=== PATIENT | female | born 1980 | race Caucasian/White ===

== ENCOUNTER 2017-02-25 15:16 | Observation (INO) ==
[2017-02-25] MEDS ORDERED: 0.9 % SODIUM CHLORIDE 1,000 ML IV ONE (15:31)
[2017-02-25] MEDS ORDERED: KETOROLAC 30 MG/ML VIAL IV ONE (15:31)
[2017-02-25] MEDS ORDERED: ONDANSETRON 4 MG/2 ML VIAL IV ONE ×2 (15:31→17:54)
--- NOTE | 2017-02-25 15:33 | Emergency Department Note ---
Female Urogenital HPI - General Chief complaint: Flank Pain Stated complaint: L flank pain Time Seen by Provider: 02/25/17 15:29 Source: patient Mode of arrival: ambulatory - History of Present Illness HPI Narrative: [facility] developing left flank pain last night associated with nausea and vomiting. She has a history of kidney stones. As this feels identical to previous stones. - Related Data Home Medications Medication Instructions Recorded Confirmed No Known Home Meds [No Known Home 02/26/17 02/26/17 Meds] Allergies Allergy/AdvReac Type Severity Reaction Status Date / Time codeine AdvReac Mild Itching Verified 02/25/17 15:19 Review of Systems All systems ED: reviewed and negative except as stated. Past Medical History - Past Medical History [facility] Narrative: Medical History (Last Updated 01/09/17 @ 14:14 by [employer] [place]) Lumbosacral strain (Acute) Surgical history ED: Reports: - Social History Alcohol use: Reports: None Drug use: Reports: unknown Physical Exam - General Limitations: no limitations General appearance: alert, in no apparent distress - Head Head exam: atraumatic, normocephalic - Eye Eye exam: Present: normal appearance - ENT ENT exam: normal exam - Neck Neck exam: Present: normal inspection - Chest Chest inspection: Present: normal inspection - Respiratory Respiratory exam: Present: normal lung sounds bilaterally - Cardiovascular Cardiovascular exam: Present: regular rate, normal rhythm, normal heart sounds - Abdominal Exam Abdominal exam: Present: soft. Absent: distention, tenderness, guarding, rebound, rigidity - Back Exam Back exam: Present: CVA tenderness (L) - Neurological Exam Neurological exam: Present: alert, oriented X3 - Psychiatric Psychiatric exam: Present: normal affect, normal mood - Skin Skin exam: Present: warm, dry, intact, normal color Course Vital Signs Temperature 98.5 F 02/25/17 15:16 Pulse Rate 94 H 02/25/17 15:16 Respiratory Rate 16 02/25/17 15:16 Blood Pressure 118/66 02/25/17 15:16 Pulse Oximetry (%) 98 02/25/17 15:16 Temperature 98.1 F 02/26/17 03:03 Pulse Rate 69 02/26/17 03:03 Respiratory Rate 12 02/26/17 03:03 Blood Pressure 108/66 02/26/17 03:03 Pulse Oximetry (%) 99 02/26/17 06:59 Urogenital-Female - MDM Narrative Medical decision making narrative: Patient CT scan did not show a kidney stone but did show a partial small bowel obstruction. Patient was referred to Dr. Novoa the surgeon and will be admitted. NG-tube was placed. - Lab Data Lab results reviewed: Yes I reviewed the patient's lab results. Result diagrams: 02/26/17 04:15 02/26/17 04:15 Lab Results 02/25/17 02/25/17 02/25/17 Range/Units 13:51 15:31 16:43 WBC 5.9 (4.5-11.0) K/mcL RBC 4.13 (4.00-5.20) M/mcL Hgb 13.4 (12.0-15.0) g/dL Hct 39.6 (36.0-48.0) % MCV 95.7 (80.0-100.0) fL MCH 32.3 (26.0-34.0) pg MCHC 33.7 (31.0-36.0) g/dL RDW 12.9 (11.5-14.5) % Plt Count 249 (140-440) K/mcL MPV 8.5 (7.4-10.4) fL Gran % 54.7 (38.0-78.0) % Lymph % (Auto) 37.5 (15.5-49.0) % [place] % (Auto) 5.4 (1.0-12.0) % Eos % (Auto) 2.1 (0.0-7.0) % Baso % (Auto) 0.3 (0.0-2.0) % Gran # 3.2 (1.8-8.0) K/mcL Lymph # (Auto) 2.2 (1.5-4.8) K/mcL [place] # (Auto) 0.3 (0.1-0.9) K/mcL Eos # (Auto) 0.1 (0.0-0.7) K/mcL Baso # (Auto) 0 (0.0-0.3) K/mcL PT (11.9-14.5) sec INR (0.9-1.1) APTT (20-37) sec VBG Lactic Acid (0.5-2.2) mmol/L Sodium (133-145) mmol/L Potassium (3.3-5.1) mmol/L Chloride (96-108) mmol/L Carbon Dioxide (22-30) mmol/L Anion Gap (8-16) BUN (6-20) mg/dl Creatinine (0.6-1.1) mg/dl GFR Calculation Glucose (70-105) mg/dL Hemoglobin A1c (4.0-6.0) % HGB Estim Average Glucose mg/dL Calcium (8.6-10.4) mg/dl Total Bilirubin (0.0-1.0) mg/dL AST (0-37) U/l ALT (0-40) U/l Alkaline Phosphatase (39-117) U/L Total Protein (5.9-8.4) gm/dL Albumin (3.2-5.2) gm/dL Globulin (2.2-3.7) gm/dL Albumin/Globulin Ratio (1.0-2.3) Urine Color Straw Urine Appearance Clear Urine pH 7.0 (5.0-9.0) Ur Specific [employer] 1.003 (1.000-1.035) Urine Protein Neg (NEG) mg/dL Urine Glucose (UA) Negative (NEG) mg/dL Urine Ketones Neg (NEG) mg/dL Urine Occult Blood >=1.0 A (<0.03) mg/dL Urine Nitrate Neg (NEG) Urine Bilirubin Neg (NEG) mg/dL Urine Urobilinogen Neg (NEG) mg/dL Ur Leukocyte Esterase Neg (NEG) /uL Urine RBC 2 H (0-1) /hpf Urine WBC 0 (0-4) /hpf Ur Squamous Epith Cells 1 (0-4) /hpf Urine Bacteria 0 (0) /hpf Urine Mucus Few (0) /hpf Ur Culture Indicated? No Urine Opiates Screen None detected (NONDETECTED) Ur Opiates Confirm Not Reportable Ur Oxycodone Screen None detected (NONDETECTED) Urine Methadone Screen None detected (NONDETECTED) Ur Methadone Confirm Not Reportable Ur Barbiturates Screen None detected (NONDETECTED) Ur Barbiturate Confirm Not Reportable Ur Phencyclidine Scrn None detected (NONDETECTED) Urine PCP Confirm Not Reportable Ur Amphetamines Screen Suspect positive A (NONDETECTED) U Benzodiazepines Scrn None detected (NONDETECTED) U Benzodiazepine Confm Not Reportable Urine Cocaine Screen None detected (NONDETECTED) Urine Cocaine Confirm Not Reportable U Marijuana (THC) Screen None detected (NONDETECTED) 02/25/17 02/25/17 02/25/17 Range/Units 16:43 16:43 16:43 WBC (4.5-11.0) K/mcL RBC (4.00-5.20) M/mcL Hgb (12.0-15.0) g/dL Hct (36.0-48.0) % MCV (80.0-100.0) fL MCH (26.0-34.0) pg MCHC (31.0-36.0) g/dL RDW (11.5-14.5) % Plt Count (140-440) K/mcL MPV (7.4-10.4) fL Gran % (38.0-78.0) % Lymph % (Auto) (15.5-49.0) % [place] % (Auto) (1.0-12.0) % Eos % (Auto) (0.0-7.0) % Baso % (Auto) (0.0-2.0) % Gran # (1.8-8.0) K/mcL Lymph # (Auto) (1.5-4.8) K/mcL [place] # (Auto) (0.1-0.9) K/mcL Eos # (Auto) (0.0-0.7) K/mcL Baso # (Auto) (0.0-0.3) K/mcL PT 13.8 (11.9-14.5) sec INR 1.0 (0.9-1.1) APTT 32 (20-37) sec VBG Lactic Acid (0.5-2.2) mmol/L Sodium 138 (133-145) mmol/L Potassium 4.1 (3.3-5.1) mmol/L Chloride 102 (96-108) mmol/L Carbon Dioxide 22 (22-30) mmol/L Anion Gap 14.0 (8-16) BUN 13 (6-20) mg/dl Creatinine 0.9 (0.6-1.1) mg/dl GFR Calculation 81 Glucose 83 (70-105) mg/dL Hemoglobin A1c 5.1 (4.0-6.0) % HGB Estim Average Glucose 100 mg/dL Calcium 9.6 (8.6-10.4) mg/dl Total Bilirubin 0.3 (0.0-1.0) mg/dL AST 22 (0-37) U/l ALT 22 (0-40) U/l Alkaline Phosphatase 53 (39-117) U/L Total Protein 7.8 (5.9-8.4) gm/dL Albumin 5.1 (3.2-5.2) gm/dL Globulin 2.7 (2.2-3.7) gm/dL Albumin/Globulin Ratio 1.9 (1.0-2.3) Urine Color Urine Appearance Urine pH (5.0-9.0) Ur Specific [employer] (1.000-1.035) Urine Protein (NEG) mg/dL Urine Glucose (UA) (NEG) mg/dL Urine Ketones (NEG) mg/dL Urine Occult Blood (<0.03) mg/dL Urine Nitrate (NEG) Urine Bilirubin (NEG) mg/dL Urine Urobilinogen (NEG) mg/dL Ur Leukocyte Esterase (NEG) /uL Urine RBC (0-1) /hpf Urine WBC (0-4) /hpf Ur Squamous Epith Cells (0-4) /hpf Urine Bacteria (0) /hpf Urine Mucus (0) /hpf Ur Culture Indicated? Urine Opiates Screen (NONDETECTED) Ur Opiates Confirm Ur Oxycodone Screen (NONDETECTED) Urine Methadone Screen (NONDETECTED) Ur Methadone Confirm Ur Barbiturates Screen (NONDETECTED) Ur Barbiturate Confirm Ur Phencyclidine Scrn (NONDETECTED) Urine PCP Confirm Ur Amphetamines Screen (NONDETECTED) U Benzodiazepines Scrn (NONDETECTED) U Benzodiazepine Confm Urine Cocaine Screen (NONDETECTED) Urine Cocaine Confirm U Marijuana (THC) Screen (NONDETECTED) 02/25/17 Range/Units 19:48 WBC (4.5-11.0) K/mcL RBC (4.00-5.20) M/mcL Hgb (12.0-15.0) g/dL Hct (36.0-48.0) % MCV (80.0-100.0) fL MCH (26.0-34.0) pg MCHC (31.0-36.0) g/dL RDW (11.5-14.5) % Plt Count (140-440) K/mcL MPV (7.4-10.4) fL Gran % (38.0-78.0) % Lymph % (Auto) (15.5-49.0) % [place] % (Auto) (1.0-12.0) % Eos % (Auto) (0.0-7.0) % Baso % (Auto) (0.0-2.0) % Gran # (1.8-8.0) K/mcL Lymph # (Auto) (1.5-4.8) K/mcL [place] # (Auto) (0.1-0.9) K/mcL Eos # (Auto) (0.0-0.7) K/mcL Baso # (Auto) (0.0-0.3) K/mcL PT (11.9-14.5) sec INR (0.9-1.1) APTT (20-37) sec VBG Lactic Acid 0.7 (0.5-2.2) mmol/L Sodium (133-145) mmol/L Potassium (3.3-5.1) mmol/L Chloride (96-108) mmol/L Carbon Dioxide (22-30) mmol/L Anion Gap (8-16) BUN (6-20) mg/dl Creatinine (0.6-1.1) mg/dl GFR Calculation Glucose (70-105) mg/dL Hemoglobin A1c (4.0-6.0) % HGB Estim Average Glucose mg/dL Calcium (8.6-10.4) mg/dl Total Bilirubin (0.0-1.0) mg/dL AST (0-37) U/l ALT (0-40) U/l Alkaline Phosphatase (39-117) U/L Total Protein (5.9-8.4) gm/dL Albumin (3.2-5.2) gm/dL Globulin (2.2-3.7) gm/dL Albumin/Globulin Ratio (1.0-2.3) Urine Color Urine Appearance Urine pH (5.0-9.0) Ur Specific [employer] (1.000-1.035) Urine Protein (NEG) mg/dL Urine Glucose (UA) (NEG) mg/dL Urine Ketones (NEG) mg/dL Urine Occult Blood (<0.03) mg/dL Urine Nitrate (NEG) Urine Bilirubin (NEG) mg/dL Urine Urobilinogen (NEG) mg/dL Ur Leukocyte Esterase (NEG) /uL Urine RBC (0-1) /hpf Urine WBC (0-4) /hpf Ur Squamous Epith Cells (0-4) /hpf Urine Bacteria (0) /hpf Urine Mucus (0) /hpf Ur Culture Indicated? Urine Opiates Screen (NONDETECTED) Ur Opiates Confirm Ur Oxycodone Screen (NONDETECTED) Urine Methadone Screen (NONDETECTED) Ur Methadone Confirm Ur Barbiturates Screen (NONDETECTED) Ur Barbiturate Confirm Ur Phencyclidine Scrn (NONDETECTED) Urine PCP Confirm Ur Amphetamines Screen (NONDETECTED) U Benzodiazepines Scrn (NONDETECTED) U Benzodiazepine Confm Urine Cocaine Screen (NONDETECTED) Urine Cocaine Confirm U Marijuana (THC) Screen (NONDETECTED) - Radiology Data Radiology results reviewed: Yes I reviewed the patient's radiology results. Disposition Clinical Impression: Small bowel obstruction Disposition: Xfer As Inpt ([facility]) Condition: Fair
[2017-02-25] MEDS: HYDROmorphone 2 MG/ML SYRINGE IV PRN ×3 (15:59→23:42)
[2017-02-25 16:11] LABS: Appearance,Urine CLEAR; Bacteria,Urine 0 /hpf (0); Bilirubin,Urine NEG (NEG); Color,Urine STRAW; Glucose,Urine (UA) NEGATIVE (NEG); Leukocyte Esterase,Urine NEG /uL (NEG); Mucus,Urine FEW /hpf (0); Nitrate,Urine NEG (NEG); Protein,Urine NEG (NEG); Specific Gravity,Urine 1.003 (1.000-1.035); Urine Blood >=1.0 mg/dL (<0.03); Urine RBC 2 /hpf (0-1); Urine Squamous Epithelial Cell 1 /hpf (0-4); Urine WBC 0 /hpf (0-4); Urobilinogen,Urine NEG (NEG)
--- NOTE | 2017-02-25 16:54 | Cat Scan Report ---
CLINICAL INFORMATION: Left flank pain COMPARISON: None. TECHNIQUE: Axial images were obtained through the abdomen and pelvis. Sagittally and coronally reformatted images. FINDINGS: Kidneys are negative. No obstructing or nonobstructing calculi. No hydronephrosis. No hydroureter. No ureteral stone. No bladder calculus. There are calcifications in the pelvis but these appear to be phleboliths and are not within either ureter. There is dilatation of the jejunum in the left upper quadrant. Jejunum is dilated to approximately 3.5 cm in diameter. Ileum is of normal caliber. There is gas and fecal material within the colon. Appearance is consistent with partial or early mechanical small bowel obstruction. There is probable mild pneumatosis intestinalis. Patient is consistent with a left paraduodenal or lesser sac hernia. No significant bowel wall thickening at this time. No free fluid. No pneumoperitoneum. Liver, pancreas, adrenal glands, kidneys are negative to limits of noncontrast enhanced examination. No other abnormalities. Lumbar spine, sacrum, pelvis are negative. Colon is negative. No diverticulitis. No appendicitis. IMPRESSION: 1. Appearance consistent with mechanical small bowel obstruction with dilated jejunum in the left upper quadrant 2. Findings are suggestive of left duodenal or lesser sac hernia with early or partial mechanical small bowel obstruction. Interpreted and Authenticated by: Jamal Landin 02/25/17
[2017-02-25] MEDS ORDERED: LIDOCAINE JEL 2% 1 TUBE 30GM TOPICAL ONE (16:55)
[2017-02-25 17:08] LABS: Basophils # (Auto) 0 K/mcL (0.0-0.3); Basophils % (Auto) 0.3 % (0.0-2.0); Eosinophils # (Auto) 0.1 K/mcL (0.0-0.7); Eosinophils % (Auto) 2.1 % (0.0-7.0); Granulocytes % (Auto) 54.7 % (38.0-78.0); Lymphocytes # (Auto) 2.2 K/mcL (1.5-4.8); Lymphocytes % (Auto) 37.5 % (15.5-49.0); Mean Cell Volume 95.7 fL (80.0-100.0); Mean Corpuscular HGB Conc 33.7 g/dL (31.0-36.0); Mean Corpuscular Hemoglobin 32.3 pg (26.0-34.0); Monocytes # (Auto) 0.3 K/mcL (0.1-0.9); Monocytes % (Auto) 5.4 % (1.0-12.0); Platelet Count 249 K/mcL (140-440); RBC 4.13 M/mcL (4.00-5.20); Red Cell Distribution Width 12.9 % (11.5-14.5)
[2017-02-25 17:30] LABS: ALT/SGPT 22 U/l (0-40); Albumin 5.1 gm/dL (3.2-5.2); Albumin/Globulin Ratio 1.9 (1.0-2.3); Alkaline Phosphatase 53 U/L (39-117); Blood Urea Nitrogen 13 mg/dl (6-20)
--- NOTE | 2017-02-25 18:10 | XRay Report ---
CLINICAL INFORMATION: Abdominal pain and probable bowel obstruction. Nasogastric tube placement TECHNIQUE: AP portable examination centered at the diaphragm COMPARISON: CT scan dated 02/25/2017 FINDINGS: Esophagogastric tube with its tip coiled in the gastric fundus. No other focal abnormality. Lung bases are negative. Bowel gas pattern is unremarkable. IMPRESSION: Esophagogastric tube in the left upper quadrant consistent with gastric fundus Interpreted and Authenticated by: Jamal Landin 02/25/17
--- NOTE | 2017-02-25 18:44 | General Surg History&Physical ---
History of Present Illness Patient information: Note initiated : 02/25/17 at 6:42 pm Service Date, if different from initiated Date: [] Patient: Marcello Courtney a 36 y/o F admitted on for L flank pain. Chief Complaint: [] HPI: Ms. Courtney is a 36 year old F seen in the emergency room with complaints of left flank pain. She states that she has had poor appetite with nausea 4 days. She developed left flank pain last evening and had emesis 2. The pain became worse during the night. She has not had flatus or bowel movement for the past day. She has had a 12 years ago and appendectomy 5 years ago. She was seen in the emergency room where it was noted that she had dilated small bowel. CT scan shows possible jejunal dilation but the remainder of her bowel is also dilated suggesting that she may have a partial obstruction. Radiologist suggests an internal hernia with partial obstruction. She is admitted and will undergo small bowel follow-through with Gastrografin. 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 Her last use was 5 days ago Medications and Allergies Allergies Allergy/AdvReac Type Severity Reaction Status Date / Time codeine AdvReac Mild Itching Verified 02/25/17 15:19 Exam Temp Pulse Resp BP Pulse Ox 98.5 F 71 16 125/81 100 02/25/17 15:16 02/25/17 18:01 02/25/17 15:16 02/25/17 18:01 02/25/17 18:01 - General physical appearance well developed, well nourished, no distress - Eyes PERRL, normal ocular movement - ENT normal pinna, normal nares, normal mucosa, no hearing loss, no congestion - Head Head exam IM: Present: atraumatic, normocephalic - Neck no masses, no bruits, trachea midline, no lymphadectomy, no venous distension - Cardiovascular Cardiovascular exam IM: Present: normal rate and rhythm - Respiratory normal expansion, normal respiratory effort, clear to percussion, clear to auscultation - Abdomen Abdomen: Present: soft, tender (Tender left upper quadrant hyperactive bowel sounds ; no palpable masses), bowel sounds Hernia: Present: none - Integumentary Present: no rash, no growths, no abnormal pigmentation, other (Old scarring of both upper extremities needle track mendoza upper extremities;) - Neurologic Present: normal coordination, normal sensation - Musculoskeletal Present: normal gait, normal posture - Psychiatric Present: oriented to time, oriented to person, oriented to place, speech is normal, memory intact Assessment and Plan (1) Small bowel obstruction Small bowel follow-through to be done tonight Nasogastric decompression Follow-up abdominal x-rays in the morning Urine drug screen Status: Acute (2) History of recreational drug use Status: Acute
[2017-02-25 19:38] LABS: Hemoglobin A1C 5.1 % HGB (4.0-6.0)
[2017-02-25] MEDS ORDERED: DIATRIZOATE MEGLU/DIATRIZO SOD 30 ML BOTTLE PO ONE (20:07)
[2017-02-25 20:12] LABS: Amphetamine Screen,Urine SUSPECT POSITIVE (NONDETECTED); Benzodiazepines Screen,Urine NONE DETECTED (NONDETECTED); Cocaine Screen,Urine NONE DETECTED (NONDETECTED); Opiate Screen,Urine NONE DETECTED (NONDETECTED); Oxycodone, Urine Screen NONE DETECTED (NONDETECTED)
[2017-02-25] MEDS: METOCLOPRAMIDE 10 MG/2 ML VIAL IV SCH (20:36)
[2017-02-25] MEDS: 0.9 % SODIUM CHLORIDE 1,000 ML IV SCH (20:36)
[2017-02-25] MEDS ORDERED: LORazepam 2 MG/ML VIAL IV PRN (21:34)
[2017-02-25] MEDS: 0.9 % SODIUM CHLORIDE 10 ML SYRINGE IV SCH (22:16)
[2017-02-25] MEDS ORDERED: LORazepam 2 MG/ML VIAL ONE (22:24)
[2017-02-26] MEDS: METOCLOPRAMIDE 10 MG/2 ML VIAL IV SCH ×5 (01:07→23:36)
[2017-02-26] MEDS: 0.9 % SODIUM CHLORIDE 1,000 ML IV SCH ×5 (05:05→22:32)
[2017-02-26] MEDS: HYDROmorphone 2 MG/ML SYRINGE IV PRN ×3 (05:06→10:28)
[2017-02-26] MEDS: 0.9 % SODIUM CHLORIDE 10 ML SYRINGE IV SCH ×3 (05:07→20:05)
--- NOTE | 2017-02-26 05:47 | XRay Report ---
CLINICAL INFORMATION: Possible left upper quadrant mechanical small bowel obstruction TECHNIQUE: Water-soluble contrast material was injected through the patient's nasogastric tube. Serial imaging performed 21 hour and 45 minutes postingestion COMPARISON: CT scan dated 02/25/2017 FINDINGS: CT scan was suspicious for left upper quadrant small bowel obstruction. Internal hernia suspected. Present examination is negative. Contrast material passes through the small bowel and is in the colon by 1 h and 45 minutes postingestion. No left upper quadrant small bowel dilatation. No focal abnormality. IMPRESSION: Negative small bowel study. Interpreted and Authenticated by: Jamal Landin 02/26/17
[2017-02-26 05:59] LABS: Mean Cell Volume 96.2 fL (80.0-100.0); Mean Corpuscular HGB Conc 34.2 g/dL (31.0-36.0); Mean Corpuscular Hemoglobin 32.9 pg (26.0-34.0); Platelet Count 224 K/mcL (140-440); Red Cell Distribution Width 12.9 % (11.5-14.5)
[2017-02-26 06:43] LABS: ALT/SGPT 21 U/l (0-40); Albumin 4.4 gm/dL (3.2-5.2); Albumin/Globulin Ratio 1.8 (1.0-2.3); Alkaline Phosphatase 45 U/L (39-117); Bilirubin,Direct < 0.2 mg/dL (0.0-0.3); Blood Urea Nitrogen 17 mg/dl (6-20); Gamma Glutamyl Transpeptidase 11 U/L (5-36); Magnesium 2.1 mg/dL (1.6-2.5)
[2017-02-26] MEDS: PANTOPRAZOLE 40 MG VIAL IV SCH ×2 (07:28→17:53)
[2017-02-26 07:51] LABS: Lymphocytes % 42 % (15-49); Monocytes % (Manual) 4 % (1-12); Platelet Estimate NORMAL (NORMAL); RBC Morphology NORMAL (NORMAL); Segmented Neutrophils % 52 % (38-78)
--- NOTE | 2017-02-26 08:01 | XRay Report ---
CLINICAL INFORMATION: Follow-up, possible small bowel obstruction TECHNIQUE: Supine and upright abdomen. Images were obtained approximately 12 hours after administration of oral contrast material COMPARISON: Previous images dated 02/25/2017 FINDINGS: There is oral contrast material throughout the colon. No dilated small bowel. No evidence for mechanical small bowel obstruction. Small bowel study is negative. IMPRESSION: 1. Contrast material throughout the colon. 2. No mechanical small bowel obstruction Interpreted and Authenticated by: Jamal Landin 02/26/17
--- NOTE | 2017-02-26 11:01 | General Surgery Progress Note ---
Subjective Patient reports: feels better, pain is less, flatus, bowel movement, afebrile Narrative: Note initiated : 02/26/17 at 10:58 am Service Date, if different from initiated Date: [] Patient: Marcello Courtney 36 y/o F admitted on 02/25/17 for L flank pain. Chief Complaint: [patient feels better. Her small bowel follow-through showed transit throuel in 1 hour 45 minute. She's had multiple liquid since that time. Her nausea is significantly improve. Her abdomen is much softer and she has good active bowel sounds. Her serum lactate done last evening was 0.7. Her urine drug screen was positive for amphetamines.abdominal x-rays this morning does not demonstrated di bowel. She does have a dilated right colon however contrast goes throughout her right colon.] Objective Temp Pulse Resp BP Pulse Ox 98.1 F 69 12 108/66 98 02/26/17 03:03 02/26/17 03:03 02/26/17 03:03 02/26/17 03:03 02/26/17 07:57 - Additional Data Intake & Output - Last 24 hours: Intake & Output 02/24/17 02/25/17 02/26/17 02/27/17 05:59 05:59 05:59 05:59 Intake Total 1000 / 2000 Output Total 630 / 630 300 / 300 Balance 370 / 1370 -300 / -300 Weight 142 lb 8 oz - General physical appearance moderate distress, moderate pain - Eyes PERRL - ENT no congestion - Neck no venous distension - Respiratory clear to auscultation - Cardiovascular Cardiovascular exam: Present: normal rate and rhythm, RRR, +S1, +S2. Absent: JVD - Abdomen soft, tender (tenderness in left upper quadrant; abdomen is soft and nondistended; she has good act sounds) - Integumentary no rash, no growths, no abnormal pigmentation - Neurologic normal coordination, normal sensation - Musculoskeletal normal gait, normal posture - Psychiatric oriented to time, oriented to person, oriented to place, speech is normal, memory intact - Labs 02/26/17 04:15 02/26/17 04:15 Diabetes panel 02/26/17 Range/Units 04:15 Sodium 146 H (133-145) mmol/L Potassium 4.0 (3.3-5.1) mmol/L Chloride 111 H (96-108) mmol/L Carbon Dioxide 22 (22-30) mmol/L BUN 17 (6-20) mg/dl Creatinine 0.9 (0.6-1.1) mg/dl Glucose 84 (70-105) mg/dL Calcium 8.9 (8.6-10.4) mg/dl AST 23 (0-37) U/l ALT 21 (0-40) U/l Alkaline Phosphatase 45 (39-117) U/L Total Protein 6.8 (5.9-8.4) gm/dL Albumin 4.4 (3.2-5.2) gm/dL Triglycerides 135 (<150) mg/dl Calcium panel 02/26/17 Range/Units 04:15 Calcium 8.9 (8.6-10.4) mg/dl Phosphorus 3.5 (2.7-4.5) mg/dL Albumin 4.4 (3.2-5.2) gm/dL Pituitary panel 02/26/17 Range/Units 04:15 Sodium 146 H (133-145) mmol/L Potassium 4.0 (3.3-5.1) mmol/L Chloride 111 H (96-108) mmol/L Carbon Dioxide 22 (22-30) mmol/L BUN 17 (6-20) mg/dl Creatinine 0.9 (0.6-1.1) mg/dl Glucose 84 (70-105) mg/dL Calcium 8.9 (8.6-10.4) mg/dl Adrenal panel 02/26/17 Range/Units 04:15 Sodium 146 H (133-145) mmol/L Potassium 4.0 (3.3-5.1) mmol/L Chloride 111 H (96-108) mmol/L Carbon Dioxide 22 (22-30) mmol/L BUN 17 (6-20) mg/dl Creatinine 0.9 (0.6-1.1) mg/dl Glucose 84 (70-105) mg/dL Calcium 8.9 (8.6-10.4) mg/dl Total Bilirubin 0.3 (0.0-1.0) mg/dL AST 23 (0-37) U/l ALT 21 (0-40) U/l Alkaline Phosphatase 45 (39-117) U/L Total Protein 6.8 (5.9-8.4) gm/dL Albumin 4.4 (3.2-5.2) gm/dL - Imaging Abdominal x-ray: report reviewed, image reviewed Assessment and Plan (1) Small bowel obstruction Status: Acute Assessment and plan: pattern of obstruction significantly improved Discontinue nasogastric tube Start full ld diet Check abdominal x-rays in the morning Current Visit: Yes (2) History of recreational drug use Status: Acute Current Visit: Yes - Time Spent With Patient Total time spent is greater than 50% in coordination of care (as documented) at patient's floor/unit and/or counseling patient:
[2017-02-26] MEDS ORDERED: ACETAMINOPHEN 650 MG/65 ML BOTTLE IV PRN (17:20)
[2017-02-27] MEDS: 0.9 % SODIUM CHLORIDE 1,000 ML IV SCH ×2 (02:03→07:03)
[2017-02-27] MEDS: 0.9 % SODIUM CHLORIDE 10 ML SYRINGE IV SCH (04:54)
[2017-02-27] MEDS: METOCLOPRAMIDE 10 MG/2 ML VIAL IV SCH (05:52)
[2017-02-27 06:03] LABS: ALT/SGPT 18 U/l (0-40); Albumin 3.8 gm/dL (3.2-5.2); Albumin/Globulin Ratio 1.8 (1.0-2.3); Alkaline Phosphatase 45 U/L (39-117); Bilirubin,Direct < 0.2 mg/dL (0.0-0.3); Blood Urea Nitrogen 13 mg/dl (6-20); Gamma Glutamyl Transpeptidase 11 U/L (5-36); Magnesium 1.8 mg/dL (1.6-2.5); Uric Acid 3.9 mg/dL (2.5-8.0)
[2017-02-27] MEDS: PANTOPRAZOLE 40 MG VIAL IV SCH (07:03)
--- NOTE | 2017-02-27 07:35 | XRay Report ---
CLINICAL INFORMATION: Abdominal pain. Previous CT scan was suggestive of left upper quadrant small bowel obstruction TECHNIQUE: Supine and left lateral decubitus abdomen COMPARISON: Previous examinations dated 02/26/2017 and 02/25/2017 FINDINGS: There is contrast material within the colon. No significant small bowel dilatation. No significant air-fluid levels. No significant mechanical small bowel obstruction. The right side of the abdomen is not completely included on the left lateral decubitus view. Pneumoperitoneum is not excluded on this study. IMPRESSION: Unremarkable bowel gas pattern. No evidence for mechanical small bowel obstruction. Interpreted and Authenticated by: Jamal Landin 02/27/17
--- NOTE | 2017-02-27 09:52 | Discharge Summary ---
Providers - Providers Patient information: Note initiated : 02/27/17 at 9:48 am Service Date, if different from initiated Date: [] Patient: Marcello Courtney 36 y/o F admitted on 02/25/17 for L Flank Pain/Small Bowel Obstruction. Chief Complaint: [] Date of admission: 02/25/17 Discharge date: 02/27/17 Attending physician: Tor Novoa Primary care physician: Ilir Diaz Hospitalization Hospital course: 36-year-old female who presented to the emergency room with complaints of left flank pain on for February. She had a 4 day history of poor appetite with nausea. She later developed nausea with vomiting. She was seen in the emergency room where it was noted that she had dilated small bowel. CT scan showed possible jejunal dilation but the remainder of her bowel was also dilated suggesting that she either had partial distal obstruction or ileus. The radiologist suggested an internal hernia with partial obstruction but this would not explain the amount of dilation of her distal small bowel as well as the colon. She was admitted and started on nasogastric suction. She was given analgesics for pain. A small bowel follow-through was done and this showed transit through the small bowel and 1-1/2 hours. This effectively ruled out obstruction. Patient has gradually improved. Her diet has been advanced and she is tolerated full liquids. She still has a dilated abdomen with gas throughout her colon. She has had multiple bowel movements. Patient is felt to be stable and will be discharged today. She will be placed on GoLYTELY and Mylicon for the next week and I will follow her up in the office in 1 week with follow-up x-rays. Discharge diagnosis: Severe adynamic ileus Secondary discharge diagnosis: History of heroin and methamphetamine use Reason for admission: Abdominal pain with nausea and vomiting Pertinent studies/significant findings: CT of the abdomen and pelvis with contrast Upper GI with small bowel follow-through Complications: none Exam Temp Pulse Resp BP Pulse Ox 96.9 F L 48 L 20 87/59 98 02/27/17 07:28 02/27/17 04:00 02/27/17 07:28 02/27/17 07:28 02/27/17 07:28 - General physical appearance well developed, well nourished, no distress - Eyes PERRL, normal ocular movement - ENT normal pinna, normal nares, normal mucosa, no hearing loss, no congestion - Head Head exam IM: Present: atraumatic, normocephalic - Neck no masses, no bruits, trachea midline, no lymphadectomy, no venous distension - Cardiovascular Cardiovascular exam IM: Present: normal rate and rhythm - Respiratory normal expansion, normal respiratory effort, clear to percussion, clear to auscultation - Abdomen Abdomen: Present: soft, non tender, bowel sounds, distended (Abdomen is mildly distended; she has some minimal tenderness in the midabdomen. She has good active bowel sounds. There are no palpable masses). Absent: guarding Hernia: Present: none - Rectum Rectum: Present: no masses - Integumentary Present: no rash, no growths, no abnormal pigmentation - Neurologic Present: normal coordination, normal sensation - Musculoskeletal Present: normal gait, normal posture - Psychiatric Present: oriented to time, oriented to person, oriented to place, speech is normal, memory intact Discharge Plan - Patient/Caregiver Discharge Instructions Activity: increase activity as tolerated, other (Transferred to a facility in [facility]) Diet: Regular Diet Prescriptions: Polyethylene Glycol 3350 [Miralax] 17 gm PO BID PRN #1 powder PRN Reason: Abdominal Distention Simethicone [Gas Relief] 180 mg PO TID #120 capsule - Follow up Plan Follow up with: Tor Novoa MD [Physician] - Disposition: Xfer Other Prognosis: Good Rehab Potential: Good I certify that the patient requires SNF services.: No Overall status at discharge: patient is progressing back to baseline Pending Studies Resuscitation Status Full Code Diet Regular Diet Start FriFeb 27 Lunch Diet Full Liquid Diet Start FriFeb 26 Lunch Hydromorphone HCl (Dilaudid) 1 mg IV Q2HP PRN PRN Reason: Pain Last Admin: 02/26/17 10:28 Dose: 1 mg Admin: 02/26/17 07:28 Dose: 1 mg Admin: 02/26/17 05:06 Dose: 1 mg Admin: 02/25/17 23:42 Dose: 1 mg Sodium Chloride (Sodium Chloride 0.9%) 1,000 mls @ 125 mls/hr IV .Q8H UMA Last Admin: 02/27/17 07:03 Dose: 125 mls/hr Infusion: 02/27/17 06:32 Dose: 125 mls/hr Admin: 02/27/17 02:03 Dose: Not Given Admin: 02/26/17 22:32 Dose: 125 mls/hr Infusion: 02/26/17 21:58 Dose: 125 mls/hr Admin: 02/26/17 18:00 Dose: Not Given Admin: 02/26/17 13:58 Dose: 125 mls/hr Infusion: 02/26/17 13:05 Dose: 125 mls/hr Admin: 02/26/17 10:00 Dose: Not Given Admin: 02/26/17 05:05 Dose: 125 mls/hr Infusion: 02/26/17 04:36 Dose: 125 mls/hr Admin: 02/25/17 20:36 Dose: 125 mls/hr Acetaminophen (Ofirmev) 650 mg in 65 mls @ 130 mls/hr IV Q6HP PRN PRN Reason: PAIN/FEVER > 101 Last Infusion: 02/26/17 18:35 Dose: 130 mls/hr Admin: 02/26/17 18:05 Dose: 130 mls/hr Metoclopramide HCl (Reglan) 10 mg IV Q6 [facility] Last Admin: 02/27/17 05:52 Dose: 10 mg Admin: 02/26/17 23:36 Dose: 10 mg Admin: 02/26/17 17:46 Dose: 10 mg Admin: 02/26/17 13:12 Dose: 10 mg Admin: 02/26/17 05:05 Dose: 10 mg Admin: 02/26/17 01:07 Dose: 10 mg Admin: 02/25/17 20:36 Dose: 10 mg Pantoprazole Sodium (Protonix) 40 mg IV BIDAC [facility] Last Admin: 02/27/17 07:03 Dose: 40 mg Admin: 02/26/17 17:53 Dose: 40 mg Admin: 02/26/17 07:28 Dose: 40 mg Sodium Chloride (Saline Flush) 10 ml IV Q8 [facility] Last Admin: 02/27/17 04:54 Dose: Not Given Admin: 02/26/17 20:05 Dose: Not Given Admin: 02/26/17 13:12 Dose: 10 ml Admin: 02/26/17 05:07 Dose: Not Given Admin: 02/25/17 22:16 Dose: Not Given Shift Summary 02/27/17 03:46 Shift Summary by Randal Mo Pt alert and oriented x4, cooperative w/cares. Up w/SBA to BSC. Pt is under direct supervision from officer at [facility]. NS running to right upper arm at 125ml/hr. Has had diarrhea since procedure w/gastrograffin. Taveras in place. Pt has low urine output and is aware. IV Tylenol last given at 1835 for LLQ abdominal pain that radiates to flank. Pt denies nausea and is tolerating full liquid diet. Bowel tones active x4 quadrants. Has been hypotensive w/last BP 88/54 at 0319. Will update more at bedside. Initialized on 02/27/17 03:46 - END OF NOTE
== END 2017-02-27 10:57 | disposition other institution (70) ==
LOC: MEDSUR 15:16 → ED 15:16 → MEDSUR 20:10
PROVIDERS: ADMIT Family Medicine Adult Medicine; ATTEND Family Medicine Adult Medicine